=== PATIENT | male | born 1980 | race Caucasian/White ===

== ENCOUNTER 2020-06-17 12:30 | Emergency (ER) | payer SELFPAY ==
[2020-06-17 12:36] VITALS: BP 166/103; PULSE 91; RESP 14; TEMP 37.1; O2SAT 98
--- NOTE | 2020-06-17 12:45 | ED.URI ---
HPI - URI/Sore Throat General Chief Complaint: Upper Respiratory Infection Stated Complaint: sinus and ear pain Time Seen by Provider: 06/17/20 12:45 Source: patient and RN notes reviewed Mode of arrival: ambulatory Limitations: no limitations History of Present Illness HPI Narrative: 39 year old male who presents to [facility] care with complaints of sinus congestion,pressure to face and frontal headache pain, ear pain with feelings of ears being clogged for the past 6 days. Patient denies any known fevers, chills or sweats, admits to some nasal drainage, denies any acute cough or any shortness of breath. He reports that he has been taking Claritin and Tylenol for his symptoms MD elicited complaint: rhinorrhea and nasal congestion Pertinent past history: sinusitis Onset (ago): day(s) (6) Consistency: progressively worsening Severity: moderate Pain scale (0-10): 4 Description of mucous: clear and yellow (light yellow) Able to tolerate fluids by mouth: Yes Exacerbating factors: changing head position and leaning forward Relieving factors: nothing Associated symptoms: headache, rhinorrhea, nasal congestion and ear pain Treatments prior to arrival: acetaminophen and other (claritin) Related Data Allergies Allergy/AdvReac Type Severity Reaction Status Date / Time No Known Allergies Allergy Verified 06/17/20 12:42 Review of Systems Review of Systems: Narrative: CONSTITUTIONAL: Denies fever, chills, or sweats. EYES: Denies visual changes, redness, or discharge. ENT: Positive rhinorrhea, congestion with pressure to head and face,no sore throat, pressure to bilateral ears. CARDIOVASCULAR: Denies chest pain, palpitations, or edema. RESPIRATORY: Denies acute cough or dyspnea. GASTROINTESTINAL: Denies abdominal pain, nausea, vomiting, or diarrhea. GENITOURINARY: Denies dysuria or hematuria. SKIN: Denies rash or itching. MUSCULOSKELETAL: Denies back pain, joint pain, or myalgia. NEUROLOGIC: Positive for headache, no numbness, or weakness. PSYCHIATRIC: Positive for history of anxiety or depression. All systems reviewed & are unremarkable except as noted in HPI and below PMFSH Past Medical History Medical History (Updated 06/17/20 @ 13:25 by Shanika Penaloza NP) Anxiety Fracture of finger of left hand Hypertension Sinusitis, acute Surgical History Surgical History (Updated 06/17/20 @ 13:25 by Shanika Penaloza NP) H/O removal of cyst as child from [facility] Social History Social History (Updated 06/17/20 @ 13:12 by Shanika Penaloza NP) Smoking packs per day: 0.75 Smoking cigarettes per day: 15.0 Years smoked: 17 Smoking pack-years: 12.75 Smoking status: Current every day smoker Alcohol intake: former Alcohol use details: no alcohol for 3 years Substance use: current Substance use type: marijuana Living arrangements: with family Gender identity (if verbalized by the patient): Male Comments At time of signature, agree with nursing past medical, surgical, social and family history. There is no relevant family history pertinent to the presenting complaint Exam Narrative: Exam Narrative: GENERAL: Well-appearing, well-nourished, and in no acute distress. HEAD: Normocephalic, atraumatic. EYES: PERRLA and EOMI. ENT: Nares red, clear to light yellow rhinorrhea, no epistaxis, pressure to face and forehead TM's normal with dull light reflex, no drainage from ear canals.Throat is red with no lesions or exudates, copious post nasal drainage noted tonsils mildly enlarged and red NECK: Supple.no lymphadenopathy CHEST: Clear to auscultation. No respiratory distress.SAO2 98% on room air, denies any acute cough. HEART: Regular rate and rhythm. No murmur heard. Normal peripheral pulses. ABDOMEN: Soft, nontender, nondistended, normal active bowel sounds. EXTREMITIES: Normal range of motion. No edema. SKIN: Warm, dry, no rash. NEURO: No focal deficits. Alert and oriented x3. Course Vital Signs Vital signs:
== END 2020-06-17 13:18 | disposition home or self-care (01) ==
PROVIDERS: Emergency Provider Registered Nurse
DX: J01.90 Acute sinusitis, unspecified (principal); F17.210 Nicotine dependence, cigarettes, uncomplicated; I10 Essential (primary) hypertension
CPT/HCPCS: 99213; G0463